=== PATIENT | female | born 1945 | race Hispanic/Latino ===

== ENCOUNTER 2018-03-16 13:30 | Outpatient (AMBR) | payer MEDICARE, MEDICAID, SELFPAY ==
--- NOTE | 2018-03-14 10:52 | PT.OIERPT ---
PT OP Initial Eval Patient Information Visit Reasons: back pain Medical Diagnosis: M54.5, M48.061 Treatment Dx #1: LBP Start of Care: 03/14/18 Date of Onset: 8 weeks ago Initial Assessment Subjective Pt is 72 yr old [place]ong [place]ong[place] speaking female who c/o worsening LBP that radiates down the LE's to the feet with cramping. Pain level in the LB is 7/10 today and she can't lift heavy things due to pain. Pt feels limited with walking distance less than 1 [address] and she presents ambulating with SPC. She lives alone but her dtr's check on her often. She can do HH chores for about 10-15 mins and then has to sit. PLOF: this has been a progressive issue over the past several years. Prior to onset, she had full mobility without assistive device. PMH: DM, HTN, arthritis B knees, L TKA, asthma, high cholesterol Imaging: MRI of L/S with provider Pt goal: to feel a little better, not sure Objective Gait: step-to with R LE with SPC, decreased gait speed Trunk ArOM: B SB 20 with pain Extension: 5% with pain along beltline Flexion: 21 from floor with neural tension in B posterior LE's B rotation: 20% with pain LE strength: L hamstrings: 3/5 Quads 3+/5 Hip abd/add 4-/5 TTP: lumbar paraspinals L>R, sciatic pathway-glutes, lateral calves, B gastrocs and Achilles Oswestry: 58% Assessment Pt presents with severe trunk ROM limitations and severe LBP with radiation to the LE's that limits squatting and bending tolerance. Pt has neural tension along sciatic pathway and L LE is weaker than the R and she has difficulty advancing the L LE with gait. These findings are consistent with severe lumbar DDD with LE radiculopathy. Pt was taught HEP and given materials. Short Term and Mcfp Goals 1. Ind with HEP 2. Improved B quad and hamstring strength to 4-/5 3. Pt will improve standing tolerance to 20 minutes to do HH chores Treatment Plan 90 day POC in order to complete visits. Pt requires skilled therapy in order to increase strength, decrease pain and address aforementioned impairments. Rx may consist of Therex, Manual therapy, Neuromuscular re-education, Modalities as indicated-moist heat packs, ice packs, mechanical traction, estim Frequency and Duration 2x a week for 6 weeks Certification Dates: 03/14/18 to 06/12/18 Office Procedures PT Outpatient G-Codes Date of Service PT Date of Service: 03/14/18 G-Codes Walking & Moving Around Mobility Current Status G-Code: G8978: CL 60-80% Mobility Status G-Code: G8979: CK 40-60% PT Procedures PT Date of Service: 03/14/18 OP PT Eval Mod Complex 30 minutes: Yes
--- NOTE | 2018-03-16 19:35 | PT.ODAYNRPT ---
PT Outpatient Daily Note Date of Service: March 16, 2018 OP Daily Note Visit Reasons: back pain Outpatient Physical Therapy Treatment Date: 03/16/18 Subjective: About the same as time of evaluation Objective: See F/S for therex Assessment: Virtually any movement causes pain somewhere, most in the L/S. Poor exercise tolerance with basic first Rx ex today due to high tissue irritability and decreased knee ROM. Unable to do rotation on bike. Plan: Continue as tolerated Length of Time (minutes) of Treatment: 30 Minutes Office Procedures PT Outpatient G-Codes Date of Service PT Date of Service: 03/14/18 G-Codes Walking & Moving Around Mobility Current Status G-Code: G8978: CL 60-80% Mobility Status G-Code: G8979: CK 40-60% PT Procedures PT Date of Service: 03/14/18 OP PT Eval Mod Complex 30 minutes: Yes PT Procedures PT Date of Service: 03/16/18 Therapeutic Exercise 30 minutes: Yes
== END 2018-03-26 23:59 | disposition home or self-care (01) ==
PROVIDERS: PCP Family Medicine; Referring Provider Family Medicine; Visit Provider Physician Assistant
DX: M54.5 Low back pain (principal); M48.061 Spinal stenosis, lumbar region without neurogenic claudication
CPT/HCPCS: 97110; 97162; G8978; G8979

== ENCOUNTER → 2018-04-27 14:06 | Outpatient (BNV) | payer MEDICARE, MEDICAID, SELFPAY ==
--- NOTE | 2018-04-27 14:06 | PT.ODS1RPT ---
PT OP Progress/Discharge Note Date of Service: April 27, 2018 Progress Note/DC Note Progress Note/Discharge Note: DC Note Patient Information Visit Reasons: Amb Documentation Service Continue Service or Discharge: Discharge Discharge Date: 04/27/18 Certification Date Certification Dates: 03/14/18 to 06/12/18 Status Assessment: Pt attended the initial evaluation and 1 Rx visit and never returned or called to schedule a follow-up appt or to be reassessed. Pt will be D/C'd according to non-compliance with attendance policy. Plan: D/C Office Procedures PT Outpatient G-Codes Date of Service PT Date of Service: 04/27/18 G-Codes Walking & Moving Around Mobility Status G-Code: G8979: CK 40-60% Mobility DC Status G-Code: G8980: CL 60-80%